=== PATIENT | male | born 1960 | race African-American/Black ===

== ENCOUNTER 2019-06-01 23:56 | Emergency (ER) | payer BC ==
[~2019-06-01] VITALS: Ht 177.8 cm; Wt 78.5 kg
[~2019-06-01 23:56] MED LIST: ATOR10TA PO; HYDR12.553 PO; IBUP200T44 PO; LISI10TA PO; RIVA10TA PO; WARF10TA45 PO
[2019-06-02 00:08] VITALS: BP 140/87
--- NOTE | 2019-06-02 00:27 | PHYS DOC ---
Past Medical History Past Medical History: Hypertension (ELISA MO APRN) Past Surgical History: Other Additional Past Surgical Histo: BLADDER MESH (ELISA MO APRN) Alcohol Use: Occasionally Drug Use: None (ELISA MO APRN) Attending Signature I have participated in the care of this patient and I have reviewed and agree with all pertinent clinical information above including history, exam, and recommendations. (GOYO WAKEFIELD MD) Adult General Chief Complaint Chief Complaint: KNEE INJURY HPI HPI Patient is a 59 year old male who presents with right knee pain for three weeks. He states the twisted the knee. Pain is worse on ROM. Rates the pain as mild. States he has been taking Aleve with no relief. (ELISA MO APRN) Review of Systems Review of Systems Constitutional: Denies fever or chills [] Musculoskeletal: Reports right knee pain Integument: Denies rash or skin lesions [] Neurologic: Denies headache, focal weakness or sensory changes [] All other systems were reviewed and found to be within normal limits, except as documented in this note. (ELISA MO APRN) Allergies Allergies Allergies Coded Allergies Type Severity Reaction Last Updated Verified No Known Drug Allergies 02/02/14 No (GOYO WAKEFIELD MD) Physical Exam Physical Exam Constitutional: Well developed, well nourished, no acute distress, non-toxic appearance. [] Skin: Warm, dry, no erythema, no rash. [] Back: No tenderness, no CVA tenderness. [] Extremities: No tenderness, no cyanosis, no clubbing, ROM intact, no edema. [] Neurologic: Alert and oriented X 3, normal motor function, normal sensory function, no focal deficits noted. [] Psychologic: Affect normal, judgement normal, mood normal. [] (ELISA MO APRN) Current Patient Data Vital Signs Vital Signs Date Time Temp Pulse Resp B/P (MAP) Pulse Ox O2 Delivery O2 Flow Rate FiO2 06/02/19 00:08 97.8 98 12 140/87 (104) 97 Room Air 97.8 (GOYO WAKEFIELD MD) EKG EKG [] (ELISA MO APRN) Radiology/Procedures Radiology/Procedures [] (ELISA MO APRN) Course & Med Decision Making Course & Med Decision Making Pertinent Labs and Imaging studies reviewed. (See chart for details) This a 59yr old male with right knee that begun 3wks ago after he twisted the knee. Right knee xrays are negative. D/c with diclofenac, gabapentin and medrol dose pack. F/u with Ortho in one week (ELISA MO APRN) Dragon Disclaimer Dragon Disclaimer This electronic medical record was generated, in whole or in part, using a voice recognition dictation system. (ELISA MO APRN) Departure Departure Impression: Primary Impression: Right knee pain Disposition: HOME, SELF-CARE Condition: STABLE Referrals: ALISHA CRESPO MD (PCP) follow up in 1 week Patient Instructions: Knee Pain, [id number] Additional Instructions: You were seen for right knee pain, try to ice and elevate the knee. Take the prescribed medicines as ordered. Please follow up with the orthopedic doctor next week. Scripts Diclofenac Sodium (DICLOFENAC SODIUM) 50 Mg Tablet.dr 1 TAB PO BID, #20 TAB 0 Refills Prov: LEISA MO APRN 06/02/19 Gabapentin (GABAPENTIN ) 300 Mg Capsule 300 MG PO TID for NEUROGENIC PAIN, #30 CAP Prov: ELISA MO APRN 06/02/19 Methylprednisolone (MEDROL) 4 Mg Tab.ds.pk 1 PKG PO UD, #1 PKG Prov: ELISA MO APRN 06/02/19 Problem Qualifiers Primary Impression: Right knee pain Chronicity: acute Qualified Codes: M25.561 - Pain in right knee ELISA MO APRN Jun 02, 2019 00:27 GOYO WAKEFIELD MD Jun 02, 2019 03:36
[2019-06-02] MEDS ORDERED: DICL50TA4 PO (00:49)
[2019-06-02] MEDS ORDERED: METH4TAB2 PO (00:49)
[2019-06-02] MEDS ORDERED: GABA300C18 PO (00:49)
--- NOTE | 2019-06-02 02:17 | RAD ---
Right knee 3 views. HISTORY: Twisted knee with pain 3 views were taken of the right knee. There are joint bodies posteriorly. There is mild joint space narrowing medially. There is no acute fracture. There is mild joint space narrowing in the patellofemoral compartment. IMPRESSION: 1. Osteoarthritis right knee with joint bodies. Electronically signed by: Mateo Baker MD (06/02/2019 2:14 AM) [facility]
== END 2019-06-02 01:00 | disposition home or self-care (01) ==
LOC: ER 23:56
DX: M25.561 Pain in right knee (principal); I10 Essential (primary) hypertension; X50.9XXA Other and unspecified overexertion or strenuous movements or postures, initial encounter; Y93.89 Activity, other specified; Y92.89 Other specified places as the place of occurrence of the external cause; Y99.8 Other external cause status
CPT/HCPCS: 73562; 99284